=== PATIENT | female | born 1990 | race Two or more races ===

== ENCOUNTER 2021-09-24 12:31 | Emergency (ER) | payer OTHER ==
[~2021-09-24] VITALS: Ht 152.4 cm; Wt 52.2 kg
--- NOTE | 2021-09-24 12:37 | NUR ---
called for triage not in the waiting room.
[2021-09-24 12:52] VITALS: BP 126/85
[2021-09-24] MEDS ORDERED: IBUP-1955 PO (12:57)
--- NOTE | 2021-09-24 13:02 | NUR ---
Patient discharged to home in stable condition. Written and verbal after care instructions given. Patient verbalizes understanding of instruction.
== END 2021-09-24 13:04 | disposition home or self-care (01) ==
LOC: ER 12:33
DX: M54.2 Cervicalgia (principal); M54.9 Dorsalgia, unspecified; Z88.0 Allergy status to penicillin; V49.49XA Driver injured in collision with other motor vehicles in traffic accident, initial encounter; Y93.89 Activity, other specified; Y92.413 State road as the place of occurrence of the external cause; Y99.8 Other external cause status